=== PATIENT | female | born 2005 | race Caucasian/White ===

== ENCOUNTER 2025-08-29 06:45 | Emergency (ER) | payer MEDICAID ==
[~2025-08-29] VITALS: Ht 160 cm; Wt 61.0 kg
[2025-08-29 07:35] VITALS: O2SAT 97
[2025-08-29] MEDS: IBUPROFEN 600MG TABLET PO ONE (07:54)
[2025-08-29 07:55] LABS: BASOPHILS % 0.3 % (0.0-2.0); EOSINOPHILS % 0.4 % (0.0-5.0); HEMATOCRIT. 37.3 % (36.0-48.0); HEMOGLOBIN. 12.0 g/dL (12.0-16.0); LYMPHOCYTES % 14.6 % (20.0-50.0); MEAN PLATELET VOLUME 7.9 fl (7.4-10.4); MONOCYTES % 6.0 % (2.0-8.0); NEUTROPHILS % 78.7 % (40.0-76.0); PLATELET 247 x1000/uL (130-400); RED BLOOD CELL COUNT 4.36 mill/uL (4.2-5.4); RED CELL DISTRIBUTION WIDTH 14.8 % (11.6-14.6)
[2025-08-29 08:16] LABS: CREATININE 0.7 mg/dL (0.6-1.0); UREA NITROGEN BLOOD 6 mg/dL (9-23)
[2025-08-29 08:17] LABS: PROTEIN TOTAL 7.4 g/dL (6.0-8.3)
[2025-08-29 08:18] LABS: ASPARTATE AMINOTRANSFERASE 13 IU/L (<34); BILIRUBIN TOTAL 0.4 mg/dL (0.1-1.0)
[2025-08-29 08:19] LABS: CLARITY URINE CLEAR (CLEAR); COLOR URINE DARK YELLOW (YELLOW); GLUCOSE URINE NEGATIVE (NEGATIVE); KETONES URINE NEGATIVE (NEGATIVE); LEUKOCYTE ESTERASE URINE TRACE (NEGATIVE); NITRITE URINE POSITIVE (NEGATIVE); OCCULT BLOOD URINE NEGATIVE (NEGATIVE); PH URINE 6.5 (4.5-8.0); PROTEIN URINE NEGATIVE (NEGATIVE); SPECIFIC GRAVITY URINE 1.015 (1.005-1.030); UROBILINOGEN URINE 1.0 E.U./dL (0.2-1.0)
[2025-08-29 08:33] LABS: HCG SCREEN NEGATIVE
[2025-08-29 08:54] LABS: SQUAMOUS EPITHELIAL CELL URINE 1+ /lpf (RARE/1+)
[2025-08-29 08:55] LABS: BACTERIA URINE TRACE; RBC URINE NONE SEEN /hpf (0-2); YEAST URINE NONE SEEN
[2025-08-29] MEDS ORDERED: CEFP200T13 MT (09:24)
[2025-08-29 09:34] VITALS: BP 103/56; PULSE 80; RESP 16; TEMP 37.2; O2SAT 98
== END 2025-08-29 09:36 | disposition home or self-care (01) ==
LOC: ER 06:45
DX: R10.32 Left lower quadrant pain (principal); N39.0 Urinary tract infection, site not specified; Z87.440 Personal history of urinary (tract) infections
CPT/HCPCS: 36415; 74176; 80053; 81003; 84703; 85025; 99284